=== PATIENT | female | born 1995 | race Caucasian/White ===

== ENCOUNTER → 2017-10-31 | Outpatient (CLI) | payer OTHER | LOC: COL.RAD 12:47 | DX: G93.9 Disorder of brain, unspecified (principal) | CPT/HCPCS: A9585 ==

== ENCOUNTER → 2017-11-01 | Outpatient (CLI) | payer OTHER | LOC: COL.RAD 07:07 | DX: G93.9 Disorder of brain, unspecified (principal) | CPT/HCPCS: Q9967 ==